=== PATIENT | female | born 1960 | race Caucasian/White ===

== ENCOUNTER 2016-09-30 16:42 | Observation (INO) ==
[2016-09-30 17:15] LABS: Basophils # 0.1 K/mcL (0.0-0.2); Basophils % 0.5 %; Eosinophils # 0.2 K/mcL (0.0-0.6); Eosinophils % 2.1 %; Hematocrit 41.8 % (35.3-44.9); Hemoglobin 12.9 g/dL (11.5-15.4); Immature Granulocytes % 0.3 % (0-4); Lymphocytes # 2.8 K/mcL (0.6-4.6); Lymphocytes % 27.2 %; Mean Corpuscular HGB Conc 30.9 g/dL (31.6-35.5); Mean Corpuscular Hemoglobin 24.9 pg (28.0-33.3); Mean Corpuscular Volume 80.7 fL (83.0-100.0); Mean Platelet Volume 11.5 fL (9.4-12.4); Monocytes # 0.6 K/mcL (0.0-1.3); Monocytes % 5.7 %; Neutrophils # 6.6 K/mcL (1.6-8.9); Platelet Count 295 K/mcL (140-400); Red Blood Count 5.18 M/mcL (3.82-4.97); Red Cell Distribution Width 16.9 % (11.5-14.5); Segmented Neutrophils % 64.2 %
[2016-09-30 17:20] LABS: INR 1.1; Prothrombin Time 12.4 Seconds (9.4-12.1)
[2016-09-30 17:23] LABS: Activated Partial Thrombo Time 36.2 Seconds (26.0-36.0)
[2016-09-30 17:28] LABS: BUN/Creatinine Ratio 18 (6-26); Blood Urea Nitrogen 16 mg/dL (7-20); Calcium 9.8 mg/dL (8.6-10.8); Carbon Dioxide 28 mEq/L (19-29); Chloride 103 mEq/L (98-109); Glucose 103 mg/dL (70-99); Osmolality,Calculated 291 (280-300); Potassium 3.9 mEq/L (3.5-4.5); Sodium 140 mEq/L (136-145); eGFR For African Americans > 60 (> 60); eGFR For Non-African Americans > 60 (> 60)
[2016-09-30] MEDS ORDERED: Nitroglycerin 0.4 MG TAB.SUBL SL PRN (17:48)
--- NOTE | 2016-09-30 17:53 | Emergency Department Note ---
Disposition Clinical Impression: Chest pain, rule out acute myocardial infarction Disposition: Admitted As Inpatient Condition: Good Chest Pain HPI - General Chief Complaint: ED Chest Pain Stated Complaint: Chest Pain Time Seen by Provider: 09/30/16 17:15 Source: patient Limitations: no limitations Vital Signs Reviewed: Yes Nursing Notes Reviewed: Yes - History of Present Illness HPI Narrative: 56-year-old female with a history of hypertension and high cholesterol presents to the emergency department with a chief complaint of chest pain. She states this started abruptly just prior to arrival on driving her car. She reports associated nausea without vomiting. She reports a "pressure in the chest" like someones sitting on her. She reports some mild shortness of breath. No history of cardiac disease but did have a stress test years ago. Pain does not radiate into her back or shoulder. Denies any abdominal pain. Severity scale (1-10): 10 - Related Data Allergies Allergy/AdvReac Type Severity Reaction Status Date / Time No Known Allergies Allergy Verified 09/30/16 16:51 All systems ED: reviewed and negative except as stated. Constitutional: Denies: fever Cardiovascular: Reports: chest pain. Denies: syncope Respiratory: Reports: dyspnea. Denies: cough Gastrointestinal: Reports: nausea. Denies: abdominal pain, vomiting Musculoskeletal: Denies: back pain Neurological: Denies: headache, weakness, numbness Chest Pain PMH - Past Medical History Medical history: Reports: hyperlipidemia, hypertension Psychiatric history: Reports: anxiety, depression - Social History Smoking Status: Never smoker Alcohol use: Reports: rarely Drug use: Reports: none Physical Exam General: Anxious but alert and oriented 3 Cardiovascular: Regular rate and rhythm. S1, S2. No murmurs, rubs or gallops. Respiratory: Breath sounds clear bilaterally. No wheezing, rales or rhonchi. No resp distress Abdomen: Soft, nontender. Eyes: Conjunctiva clear, tearful HENT: No oral mucosal lesions. Moist mucous membranes Neuro: Alert and oriented 3, sitting at bedside, stands and ambulates independently Musculoskeletal: No joint tenderness or swelling. No calf tenderness or signs of DVT Skin: No lesions. No diaphoresis. Normal turgor. Normal color Psych: anxious and tearful - General Limitations: no limitations General appearance: alert Course Course Narrative: Presents to the emergency department with a chief complaint of abrupt onset chest pressure associated with nausea. Initial EKG showed some mild ST depression in the lateral precordial leads. We have no old EKG available for comparison. Patient's story sounds very concerning for ACS. Her first troponin was 0 however, it is possible this was too early in the course to become elevated. She was given nitroglycerin which significantly improved her symptoms and blood pressure. Plan to admit for ACS rule out. Vital Signs Temperature 98.6 F 09/30/16 16:45 Pulse Rate 120 09/30/16 16:45 Respiratory Rate 28 09/30/16 16:45 Blood Pressure 202/87 09/30/16 16:45 O2 Sat by Pulse Oximetry 100 09/30/16 16:45 Temperature 98.6 F 09/30/16 16:45 Pulse Rate 84 09/30/16 19:21 Respiratory Rate 16 09/30/16 19:55 Blood Pressure 142/74 09/30/16 19:55 O2 Sat by Pulse Oximetry 98 09/30/16 19:21 Oxygen Delivery Oxygen Delivery Room Air Chest Pain - Lab Data Result diagrams: 09/30/16 17:07 09/30/16 17:07 Lab Results 09/30/16 09/30/16 09/30/16 Range/Units 17:07 17:07 17:07 WBC 10.3 (4.3-11.1) K/mcL RBC 5.18 H (3.82-4.97) M/mcL Hgb 12.9 (11.5-15.4) g/dL Hct 41.8 (35.3-44.9) % MCV 80.7 L (83.0-100.0) fL MCH 24.9 L (28.0-33.3) pg MCHC 30.9 L (31.6-35.5) g/dL RDW 16.9 H (11.5-14.5) % Plt Count 295 (140-400) K/mcL MPV 11.5 (9.4-12.4) fL Immature Gran % 0.3 (0-4) % Seg Neutrophils % 64.2 % Lymphocytes % 27.2 % Monocytes % 5.7 % Eosinophils % 2.1 % Basophils % 0.5 % Neutrophils # 6.6 (1.6-8.9) K/mcL Lymphocytes # 2.8 (0.6-4.6) K/mcL Monocytes # 0.6 (0.0-1.3) K/mcL Eosinophils # 0.2 (0.0-0.6) K/mcL Basophils # 0.1 (0.0-0.2) K/mcL PT 12.4 H (9.4-12.1) Seconds INR 1.1 APTT 36.2 H (26.0-36.0) Seconds Sodium (136-145) mEq/L Potassium (3.5-4.5) mEq/L Chloride (98-109) mEq/L Carbon Dioxide (19-29) mEq/L BUN (7-20) mg/dL Creatinine (0.57-1.11) mg/dL Est GFR ( Amer) (> 60) Est GFR (Non-Af Amer) (> 60) BUN/Creatinine Ratio (6-26) Glucose (70-99) mg/dL Calculated Osmolality (280-300) Calcium (8.6-10.8) mg/dL Troponin I (0-0.03) ng/mL B-Natriuretic Peptide 19 (0-100) pg/mL 09/30/16 09/30/16 Range/Units 17:07 17:07 WBC (4.3-11.1) K/mcL RBC (3.82-4.97) M/mcL Hgb (11.5-15.4) g/dL Hct (35.3-44.9) % MCV (83.0-100.0) fL MCH (28.0-33.3) pg MCHC (31.6-35.5) g/dL RDW (11.5-14.5) % Plt Count (140-400) K/mcL MPV (9.4-12.4) fL Immature Gran % (0-4) % Seg Neutrophils % % Lymphocytes % % Monocytes % % Eosinophils % % Basophils % % Neutrophils # (1.6-8.9) K/mcL Lymphocytes # (0.6-4.6) K/mcL Monocytes # (0.0-1.3) K/mcL Eosinophils # (0.0-0.6) K/mcL Basophils # (0.0-0.2) K/mcL PT (9.4-12.1) Seconds INR APTT (26.0-36.0) Seconds Sodium 140 (136-145) mEq/L Potassium 3.9 (3.5-4.5) mEq/L Chloride 103 (98-109) mEq/L Carbon Dioxide 28 (19-29) mEq/L BUN 16 (7-20) mg/dL Creatinine 0.87 (0.57-1.11) mg/dL Est GFR ( Amer) > 60 (> 60) Est GFR (Non-Af Amer) > 60 (> 60) BUN/Creatinine Ratio 18 (6-26) Glucose 103 H (70-99) mg/dL Calculated Osmolality 291 (280-300) Calcium 9.8 (8.6-10.8) mg/dL Troponin I 0.00 (0-0.03) ng/mL B-Natriuretic Peptide (0-100) pg/mL - EKG Data EKG results narrative: EKG shows a sinus rhythm with a rate of 96 bpm. OK, QRS, QT interval within normal limits. There is one beat of ectopy. She has less than 1 mm of depression in lead V5 and 6 as well as lead 3. There is no ST elevation. Poor R-wave progression. Left axis deviation. AVL is larger than 12 mm consistent with LVH. No EKG is available for comparison Attestation Statement - Attestation Attestation: I examined this patient and my medical decision-making was reviewed with the CHARGE RN/PA/Advanced Practice Nurse/Resident Physician. I agree with the documented findings, disposition and treatment plan as described except to the extent set forth below. 56-year-old female presents the ED because of chest pain. She has sudden onset of chest discomfort just prior to arrival to the ED. Complains of a pressure sensation associated with nausea and dyspnea. Complains of generalized weakness. Denies diaphoresis. No radiation of the pain outside of her chest. No recent illnesses. No recent complaints of exertional intolerance. No abdominal pain or diarrhea. No fever or cough. Patient appears uncomfortable. Hypertensive and tachycardic. Offerings is clear neck is supple trachea midline. Chest is clear to auscultation bilaterally. Chest wall nontender Cardiac exam regular without ectopy. Abdomen soft nondistended nontender. Extremities warm and dry. EKG with ST depression in the lateral leads with no EKG for comparison. Initial ED workup is unremarkable for any acute abnormality. First troponin was 0.00. She received several which was found with resolution of her chest pain. She will be admitted for further workup and observation.
[2016-09-30] MEDS ORDERED: Ondansetron 4 MG/2 ML VIAL IVP ONE (18:22)
[2016-09-30] MEDS ORDERED: Aspirin 81 MG TAB.CHEW PO ONE (19:17)
[2016-09-30] MEDS ORDERED: Naloxone 0.4 MG/ML INJ IVP PRN (23:19)
[2016-09-30] MEDS ORDERED: Ondansetron 4 MG/2 ML VIAL IVP PRN (23:19)
[2016-09-30] MEDS ORDERED: Acetaminophen 325 MG TABLET PO PRN (23:19)
[2016-09-30] MEDS ORDERED: *HR* FentaNYL (PF) 100 MCG/2 ML VIAL IVP PRN (23:19)
[2016-09-30] MEDS ORDERED: Gabapentin 300 MG CAPSULE PO SCH (23:30)
[2016-09-30] MEDS ORDERED: *HR* Heparin 5,000 UNIT/ML VIAL SQ SCH (23:30)
[2016-09-30] MEDS ORDERED: FLUoxetine 20 MG CAPSULE PO SCH (23:30)
--- NOTE | 2016-09-30 23:32 | Internal Med History&Physical ---
Date of Encounter: 09/30/16 Time of Encounter: 23:05 Assessment and Plan (1) Chest pain Current visit: Yes Status: Acute 1. Based upon history, exam, and EKG findings, I recommend ischemic work-up -- preferably LHC. 2. Will cycle troponins, EKG's, and order ECHO. 3. Consult cardiology as I suspect she needs LHC; however, I defer to cardiology. 4. Will order Fentanyl low dose on a PRN basis for chest pain and hold off Morphine per her request. Pt very reluctant to take any new medication. Qualifiers: Chest pain type: chest pain due to myocardial ischemia Ischemic chest pain type: stable angina pectoris Qualified Code(s): I20.8 - Other forms of angina pectoris (2) Hypertension Current visit: Yes Status: Chronic 1. Resume home meds as appropriate. 2. Monitor BP and adjust as needed. Qualifiers: Hypertension type: essential hypertension Qualified Code(s): I10 - Essential (primary) hypertension (3) Anxiety Current visit: Yes Status: Chronic 1. Continue home meds as scheduled. (4) DVT prophylaxis Current visit: Yes Status: Acute 1. Heparin SQ. Internal Medicine - H&P: HPI Chief complaint: chest pain Admitted From: Emergency Dept Plans for Post Hospital Care: Home History of present illness: Ms. Wiseman is a 56 year old female who [facility] of [facility] pain. She was driving home from [place] to [facility] where she lives. During her drive home, she noticed some substernal chest pain, pressure , diaphoresis, and nausea. She also had pain radiating to her mouth and jaw. This prompted her to stop driving and stop by the nearest ER, which was here at [place]. When she was brought to the ER, she was assessed and given nitroglycerin with complete relief of her chest pain. Initial workup was negative, but she was admitted to the hospitalist service for further workup and care. Upon my assessment of the patient, she is now chest pain-free and feels well. She wants to go home. I reviewed her history and her EKG, and I recommend she stay overnight and proceed with workup. She has some ischemic changes on her EKG and her history is rather concerning. Frankly, I recommend she undergo heart catheterization given the EKG findings, history, and relief of chest pain by nitroglycerin. I was able to convince patient to stay overnight and to discuss with cardiology in the morning. She did have a heart catheterization about 10 years ago which was negative. She also had a stress test several years ago that was negative. However, that was about 5 years ago. She is very sensitive to medications and is afraid of taking much medication. In particular , she is afraid of narcotics and significant sedating effects. She wants to avoid narcotics unless absolutely necessary. Therefore, she requests if we need to give narcotics for chest pain that we only administer low-dose fentanyl rather than morphine due to prior negative side effects. Cardiac risk factors include family history and hypertension. She does not smoke. She has a history of obesity but she has lost about 70 pounds intentionally over the last few years. Past Med Surg Social Fam HX - Past Medical History Attestation: Yes The following information was validated with the patient. Source: patient, obtained from family Medical history: hyperlipidemia, hypertension Psychiatric history: anxiety, depression - Past Surgical History Surgical History: other (abdominal surgeris for bowel obstruciton/rupture with complicaitons and subsequent surgeries) - Social History Smoking Status: Never smoker Smokeless Tobacco Status: No Alcohol use: rarely Drug use: none Current living situation: Home, With Family Activity Level: Independent ambulation Recent Out of Country Travel Within the Last 8 Weeks: No - Family History Mother Living Status: Hx Family Cardiac Disorders: No Father Living Status: Cause of : pancreatic cancer Hx Family Cardiac Disorders: Yes Internal Medicine - H&P: Meds Amlodipine Besylate 10 mg PO QPM 09/30/16 [History] FLUoxetine HCl [PROzac] 20 mg PO QPM 09/30/16 [History] Gabapentin [Neurontin] 600 mg PO QPM 09/30/16 [History] Ondansetron [Zofran] 8 mg PO DAILY PRN 09/30/16 [History] Allergies No Known Allergies Allergy (Verified 09/30/16 16:51) - Constitutional Constitutional: no chills, no fever(s) - EENT Eyes: no blurry vision, no change in vision Ears: no ear pain, no tinnitus Nose, mouth and throat: no nasal congestion, no sore throat - Cardiovascular Cardiovascular ROS IM: chest pain, diaphoresis, dyspnea, no edema, no syncope - Respiratory Respiratory: no cough, no hemoptysis, no chest congestion - Gastrointestinal Gastrointestinal: nausea, no diarrhea, no hematemesis, no hematochezia, no melena, no vomiting - Genitourinary Genitourinary: no dysuria - Musculoskeletal Musculoskeletal ROS IM: no arthralgias, no back pain - Integumentary Integumentary IM: no rash, no jaundice - Neurological Neurological ROS: no disequilibrium, no dizziness, no focal weakness, no frequent falls, no headache(s) - Psychiatric Psychiatric: no anxiety, no depression - Endocrine Endocrine IM: no cold intolerance, no heat intolerance, no polydipsia, no polyuria - Hematologic/Lymphatic Hematologic/Lymphatic: no easy bruising, no lymphadenopathy - Allergic/Immunologic Allergic/Immunologic: no wheezing, no GI upset with certain foods - Constitutional Vitals: Temp Pulse Resp BP Pulse Ox 98.3 F 74 16 128/77 98 09/30/16 21:26 09/30/16 21:26 09/30/16 21:26 09/30/16 21:26 09/30/16 21:26 General appearance: Present: cooperative, A&O X 3, pleasant, no acute distress, answers questions appropriately - Head Head exam: Present: atraumatic, normal inspection - Expanded Head Exam Head exam expanded: Absent: general tenderness - Eye Eye exam: Present: EOMI, normal appearance, PERRL. Absent: scleral icterus Pupils: Present: normal accommodation - ENT ENT exam: Present: mucous membranes moist, normal exam - Neck Neck exam general surgery: Present: full ROM, supple. Absent: lymphadenopathy, thyromegaly - Expanded Neck Exam Neck exam: Absent: carotid bruit - Respiratory Respiratory exam: Present: CTAB. Absent: rales, respiratory distress, rhonchi, wheezes - Cardiovascular Cardiovascular exam: Present: RRR, +S1, +S2, systolic murmur (grade 2). Absent : diastolic murmur, JVD - GI/Abdominal GI/Abdominal exam: Present: normal bowel sounds, soft. Absent: hepatomegaly, mass, splenomegaly, tenderness Additional comments: multiple surgical scars on abdominal wall with some incisional and abdominal wall hernias - Extremities Exam Extremities exam: Present: full ROM, normal capillary refill, warm. Absent: calf tenderness, tenderness - Back Exam Back exam: Present: normal inspection. Absent: CVA tenderness (L), CVA tenderness (R) - Neurological Exam Neurological exam: Present: alert, CN II-XII intact, oriented X3, no focal deficits - Psychiatric Psychiatric exam: Present: normal affect, normal mood - Skin Skin exam: Present: dry, warm. Absent: rash Internal Med - H&P Results - Labs CBC & Chem 7: 09/30/16 17:07 09/30/16 17:07 - EKG Data -: EKG Interpreted by Myself EKG shows normal: sinus rhythm - EKG Data EKG comments: 09/30/16 23:37 sinus rhythm with flipped T waves and ST-T depression laterally suggesting ischemia - Diagnostic Studies Chest x-ray Status: image reviewed by me (negative)
[2016-10-01] MEDS: 0.9 % Sodium Chloride w KCl 20 MEQ/1,000 ML MLS IVC SCH ×2 (00:03→14:46)
[2016-10-01] MEDS ORDERED: *HR* Heparin 5,000 UNIT/ML VIAL IVP ONE (01:45)
[2016-10-01] MEDS ORDERED: Heparin 25,000 UNIT/500 ML D5W 25,000 UNIT/500 ML MLS IVC SCH (01:45)
[2016-10-01] MEDS ORDERED: *HR* Heparin 5,000 UNIT/ML VIAL IVP PRN ×2 (01:45)
[2016-10-01 05:49] LABS: BUN/Creatinine Ratio 21 (6-26); Blood Urea Nitrogen 19 mg/dL (7-20); Calcium 9.2 mg/dL (8.6-10.8); Carbon Dioxide 29 mEq/L (19-29); Chloride 108 mEq/L (98-109); Chol/HDL Ratio 2.5 (0-4.9); Cholesterol 108 mg/dL (< 200); Glucose 100 mg/dL (70-99); HDL Cholesterol 44 mg/dL (40-59); LDL Cholesterol,Calculated 50 mg/dL (0-99); Magnesium 2.1 mg/dL (1.6-2.6); Osmolality,Calculated 296 (280-300); Sodium 142 mEq/L (136-145); Triglycerides 70 mg/dL (< 150); eGFR For African Americans > 60 (> 60); eGFR For Non-African Americans > 60 (> 60)
--- NOTE | 2016-10-01 08:51 | Cardiology Consult Note ---
Addendum entered and electronically signed by Mary Paul CNP 10/01/16 09: 21: Dynamic ECG changes noted. Original Note: Date of Encounter: 10/01/16 Time of Encounter: 08:00 Assessment and Plan (1) Chest pain Current Visit: Yes Status: Acute Troponin 0.00, 0.05, 0.02. Severely elevated BP upon admission. Presents with right-sided chest pressure with radiation to neck/jaw/tongue-- relieved with NTG tab. Risk factors for CAD: HTN, post-menopausal, and positive family hx (Father, [place] 60s). [place] [facility] [place] Pain free upon exam. Will start daily asa and add betablocker. Recommend ischemic evaluation; however patient is reluctant to stay for additional testing, she wants to go home. Will further discuss and review with Dr. Erin Lazo. Qualifiers: Chest pain type: chest pain due to myocardial ischemia Ischemic chest pain type: stable angina pectoris Qualified Code(s): I20.8 - Other forms of angina pectoris (2) Hypertension Current Visit: Yes Status: Chronic Uncontrolled upon presentation, SBP >200, now stable. Continue to monitor and adjust medications as needed. Qualifiers: Hypertension type: essential hypertension Qualified Code(s): I10 - Essential (primary) hypertension Discussion w patient/family: The assessment and plan as outlined above was discussed with the patient and/or family members who expressed understanding and agreement. All questions were answered. Thank you for involving us in the care of your patient. Please call with any questions. The patient will be discussed and reviewed with Dr. Erin Lazo, changes to be made accordingly. History of Present Illness Consult date: 10/01/16 Requesting physician: Myke Ramsay Consult reason: Chest pain Chief complaint: chest pain History of present illness: Ms. Wiseman is a 56 year old female with PMH significant for HTN and gastric bypass s/p multiple abdominal surgeries who presented to [facility] yesterday evening with right-sided chest pressure. She reports that she was driving home from [place] to [place] when the pressure worsened with radiation to up bilateral jaw and tongue. Associated symptoms include fatigue and palpitations. Upon arrival to ED initial troponin was negative; BP was severely elevated upon admission. She was given NTG tab which resolved the pain. She reports that she has had similar symptoms for the past 3 months but have never been this severe. Past Med Surg Social Fam HX - Past Medical History Attestation: Yes The following information was validated with the patient. Source: patient, old records reviewed Medical history: GERD, hypertension Psychiatric history: anxiety, depression - Past Surgical History Surgical History: other (abdominal surgeris for bowel obstruciton/rupture with complicaitons and subsequent surgeries), bariatric surgery - Social History Smoking Status: Never smoker Smokeless Tobacco Status: No Alcohol use: rarely Drug use: none - Family History Mother Living Status: Hx Family Cardiac Disorders: No Father Living Status: Cause of : pancreatic cancer Hx Family Cardiac Disorders: Yes Medications and Allergies Amlodipine Besylate 10 mg PO QPM 09/30/16 [History] FLUoxetine HCl [PROzac] 20 mg PO QPM 09/30/16 [History] Gabapentin [Neurontin] 600 mg PO QPM 09/30/16 [History] Ondansetron [Zofran] 8 mg PO DAILY PRN 09/30/16 [History] Allergies No Known Allergies Allergy (Verified 09/30/16 16:51) All Systems Review: A 10-system review of systems was performed and is negative for pertinent findings except as documented above in the HPI. - Cardiovascular Cardiovascular: as per HPI Physical Examination Vital Signs, Last 4 Hours Temp Pulse Resp BP Pulse Ox 10/01/16 07:01 97.8 F 67 20 118/74 97 General: Conversant, No Apparent Distress HEENT: Atraumatic, Normocephaly, Mucus Membranes Moist Cardiac: Reg Rate and Rhythm, Normal S1 and S2 Lungs: Normal Breath Sounds Neuro: Alert and responsive Abdomen: Soft, Other (multiple scars. ) Skin: No rashes noted on visualized skin Musculoskeletal: No Chest Wall Tenderness Extremities: No Edema, Normal Pulses Results 09/30/16 17:07 10/01/16 05:25 Lab Results 09/30/16 10/01/16 10/01/16 23:55 05:25 05:25 Sodium 142 Potassium 4.0 Chloride 108 Carbon Dioxide 29 BUN 19 Creatinine 0.92 Glucose 100 H Calcium 9.2 Magnesium 2.1 Troponin I 0.05 H* 0.02 Active Medications Acetaminophen (Tylenol) 650 mg PO Q6HR PRN PRN Reason: Mild Pain (1-3) Stop: 04/01/17 23:20 Last Admin: 10/01/16 00:03 Dose: 650 mg Amlodipine Besylate (Norvasc) 10 mg PO QPM ANGELIKA Stop: 04/02/17 18:01 Fentanyl Citrate (Fentanyl (Pf)) 25 mcg IVP Q3H PRN PRN Reason: Chest Pain Stop: 04/01/17 23:31 Fluoxetine HCl (Prozac) 20 mg PO QPM ANGELIKA PRN Reason: Protocol Stop: 04/01/17 23:31 Last Admin: 10/01/16 00:03 Dose: 20 mg Gabapentin (Neurontin) 600 mg PO QPM ANGELIKA Stop: 04/01/17 23:31 Last Admin: 10/01/16 00:03 Dose: 600 mg Heparin Sodium (Porcine) (Heparin) 4,000 unit IVP Q6HR PRN PRN Reason: SEE COMMENTS Stop: 04/02/17 01:46 Heparin Sodium (Porcine) (Heparin) 2,000 unit IVP Q6H PRN PRN Reason: SEE COMMENTS Stop: 04/02/17 01:46 Potassium Chloride/Sodium Chloride (Kcl 20 Meq In 0.9% Sodium Chloride) 20 meq in 1,000 mls @ 75 mls/hr IVC .[id number] ANGELIKA Stop: 04/01/17 23:31 Last Admin: 10/01/16 00:03 Dose: Not Given Heparin Sodium/Dextrose (Heparin 25,000 Unit/500 Ml D5w) 25,000 unit in 500 mls @ 20.047 mls/hr IVC .Q24H ANGELIKA; 11.1 UNIT/KG/HR PRN Reason: Protocol Stop: 04/02/17 01:46 Last Admin: 10/01/16 02:14 Dose: Not Given Naloxone HCl (Narcan) 0.4 mg IVP Q2MIN PRN PRN Reason: Opioid Reversal Stop: 04/01/17 23:20 Nitroglycerin (Nitroglycerin) 0.4 mg SL Q5MIN PRN PRN Reason: Chest Pain Stop: 04/01/17 17:49 Last Admin: 09/30/16 18:27 Dose: 0.4 mg Ondansetron HCl (Zofran) 4 mg IVP Q8HR PRN PRN Reason: Nausea And Vomiting Stop: 04/01/17 23:20 - Imaging and Cardiology Other Results: 12 hour tele: avg HR=74 SR. Occasional PVC. - EKG Interpretation EKG results cardiology: personally reviewed Consult Discharge Plan - Plan Referrals: NO,PCP [Primary Care Provider] -
[2016-10-01] MEDS ORDERED: Aspirin Enteric Coated 81 MG Tablet PO SCH (09:15)
[2016-10-01] MEDS ORDERED: Heparin 1,000 UNITS/500 mL NS 500 ML ONE (10:49)
[2016-10-01] MEDS ORDERED: *HR* Heparin 10,000 UNIT/10 ML VIAL ONE (10:49)
[2016-10-01] MEDS ORDERED: 0.9 % Sodium Chloride 1,000 ML ONE ×2 (10:49→11:26)
[2016-10-01] MEDS ORDERED: Nitroglycerin 1,000 MCG/10 ML VIAL IV ONE (11:00)
--- NOTE | 2016-10-01 11:04 | Pre-Sedation Evaluation ---
Pre-sedation evaluation - Pre-sedation checklist Date of procedure: 10/01/16 Procedure: [facility] Recent Vitals: Last Vital Signs Temp 97.8 F 10/01/16 07:01 Pulse 67 10/01/16 07:01 Resp 20 10/01/16 07:01 BP 118/74 10/01/16 07:01 Pulse Ox 97 10/01/16 08:49 H&P (including ROS) documented in medical record: Yes Previous reaction to sedatives/anesthetics: No Dietary Status: NPO after Midnight Airway Assessment: Patient can open mouth completely, TMJ function normal, Micrognathia (under-bite, receding chin) absent, Neck with adequate range of motion Dentition: full dentition Possible difficult airway: No ASA Classification *see protocol: CLASS II-Mild systemic disease Plan of Care: Pt appropriate candidate for procedure/moderate/conscious sedation , Risks/benefits of procedure/sedation discussed w/ patient/family
[2016-10-01] MEDS ORDERED: *HR* FentaNYL (PF) 100 MCG/2 ML VIAL ONE (11:06)
[2016-10-01] MEDS ORDERED: *HR* Midazolam HCl 2 MG/2 ML VIAL ONE (11:06)
--- NOTE | 2016-10-01 11:44 | Internal Med Progress Note ---
Date of Encounter: 10/01/16 Time of Encounter: 11:42 - Assessment and plan (1) NSTEMI (non-ST elevated myocardial infarction) Current Visit: Yes Status: Acute Assessment and plan: contine hparin drip, follow cardiology input, reevaluate after cath. - Subjective Interval history: no chest pain will go for cath today. - Constitutional Vitals: Temp Pulse Resp BP Pulse Ox 97.8 F 67 20 118/74 97 10/01/16 07:01 10/01/16 07:01 10/01/16 07:01 10/01/16 07:01 10/01/16 08:49 General appearance: Present: cooperative, A&O X 3, pleasant, no acute distress, answers questions appropriately - Head Head exam: Present: atraumatic, normocephalic - Eye Eye exam: Present: PERRL, conjuntiva pink, sclera anicteric Pupils: Present: PERRL - Neck Neck exam general surgery: Present: supple, trachea midline. Absent: lymphadenopathy - Respiratory Respiratory exam: Present: CTAB. Absent: accessory muscle use, rales, rhonchi, wheezes - Cardiovascular Cardiovascular exam: Present: RRR, +S1, +S2. Absent: diastolic murmur, gallop, rubs, systolic murmur - GI/Abdominal GI/Abdominal exam: Present: normal bowel sounds, soft, no peritoneal signs. Absent: distended, tenderness - Extremities Exam Extremities exam: Present: warm, radial pulses palpable and symetrical. Absent : calf tenderness, cyanotic, pedal edema - Neurological Exam Neurological exam: Present: CN II-XII intact, oriented X3, no focal deficits. Absent: pronater drift, facial droop, speech deficit - Skin Skin exam: Present: dry, intact Internal Medicine: Result - Labs CBC & Chem 7: 09/30/16 17:07 10/01/16 05:25 Labs: BMP 10/01/16 05:25 Sodium 142 Potassium 4.0 Chloride 108 Carbon Dioxide 29 BUN 19 Creatinine 0.92 Glucose 100 H Calcium 9.2 Cardiac Enzymes 09/30/16 10/01/16 Range/Units 23:55 05:25 Troponin I 0.05 H* 0.02 (0-0.03) ng/mL - ABG Interpretation ABG results: PT/INR, D-dimer PT 12.4 Seconds (9.4-12.1) H 09/30/16 17:07 Consult Discharge Plan - Plan Referrals: NO,PCP [Primary Care Provider] -
--- NOTE | 2016-10-01 12:05 | Invasive Diagnostic Lab Proc ---
Name: Andreea Wiseman Date of Study: 10/01/2016 Date: 1960 Ht: 66.9in Medical Record#: [id number] Age: 56 Wt: 199.08lb Gender: Female BSA: 2.02 Order #: [id number] BMI: 31.25 Physicians Procedure Physician: Erin Lazo MD, FACC Referring MD: Noah Pierson Referring MD: Staff Name Position [facility] RN Scrub 11:33 AM Rayne Vargas RN Batting Machine Operator 11:33 AM Emily Mendez RN Monitor 11:33 AM Indications Indication Non-Stemi Procedures Performed Procedure L HRT ARTERY/VENTRICLE ANGIO Pre-Procedure Checklist Informed consent is complete signed and on chart. H\\T\\P is on chart. ID band is on and ID verified with patient. Patient NPO for procedure The procedure was described for the patient and questions were answered. ECG is on chart. Plan of Care Patient will tolerate the procedure without complications. Adequate level of comfort will be maintained. Hemodynamics will remain stable Patient will recover from procedure without complications. Respiratory function will be maintained. Cardiac rhythm will remain stable. Patient temperature will be maintained. Patient and/or family have verbalized understanding of the procedure. Patient Education Chief Complaint/Reason for Test: Cardiac Cath Developmental Category: Adult (18-64 years) Developmentally Appropriate for Age: Yes Learning Barriers: None Education Needs: Procedure Education Method: Verbal Information Taught: Cardiac Cath Educational Evaluation: Able to repeat information Intravenous Access Time IV Size Location DC'd Fluid/Drip Rate Units RN 10:51 AM 20g 1 1/4" Patent On Arrival Rt Antecubital 0.9NaCl 25 ml/hr Allergies No Known Allergies Vital Signs Time BP (mmHg) HR (bpm) O2 Sat. RR (bpm) LOC 11:34 AM / % 5 = Fully awake and oriented or at pre-proc level 11:31 AM 143 / 76 72 99 % 6 11:36 AM 149 / 73 66 100 % 17 11:41 AM 125 / 57 62 100 % 14 11:46 AM 128 / 56 61 99 % 13 Procedural Medications Time Medication Dose Units Method Given By 11:34 AM Oxygen 2 L/min nasal cannula Rayne Vargas RN 11:34 AM Versed 1 mg Intravenous Rayne Vargas RN 11:34 AM Fentanyl 25 mcg Intravenous Rayne Vargas RN 11:36 AM Versed 1 mg Intravenous Rayne Vargas RN 11:36 AM Fentanyl 25 mcg Intravenous Rayne Vargas RN 11:42 AM Lidocaine 2% 20 ml Subcutaneous Erin Lazo MD, [facility] ASA Classification: CLASS II- Mild systemic disease (i.e. well-controlled diabetes, hypertension, asthma, cigarette smoking) Jesús Score Preprocedure Postprocedure Activity 2- Moves 4 extremities sustained head lift Activity 2- Moves 4 extremities sustained head lift Circulation 2- SBP +/= 20 points of pre-anesthetic level Circulation 2- SBP +/= 20 points of pre-anesthetic level Consciousness 2- Awake and alert oriented x 3 Consciousness 2- Awake and alert oriented x 3 O2 Saturation 2- Able to maintain O2 satruation of 92% on room air O2 Saturation 2- Able to maintain O2 satruation of 92% on room air Respiratory 2- Able to deep breathe and cough well Respiratory 2- Able to deep breathe and cough well Total Score 10 Total Score 10 Contrast Agent: Isovue Diagnostic Contrast: 49 ml Total Contrast: 49 ml Fluoro Dose: 121 mGy Procedure Log Time Note Enter By 11:09 AM CathStat 11:09 AM Case Start 11:30 AM Vitals capture started with the following parameters, Patient=Adult, Interval=5 min, Initial Clluhfom=659 mmHg, Deflation Rate=5 mmHg, Cuff placed on Left Arm 11:31 AM HR=72 bpm, LZIS=384/76 mmhg, SpO2=99.0 %, Resp=6 B/min, Comment=SR 11:32 AM Recorded ECG: HR=74 Condition=Condition 1 11:33 AM Pt arrived to farm laborer 2 at 11:33 [email or web address] 11:33 AM Jagdish Azar RN Position: Scrub Time in: 11:33 [email or web address] 11:33 AM Rayne Vargas RN Position: Batting Machine Operator Time in: 11:33 [email or web address] 11:33 AM Emily Mendez RN Position: Monitor Time in: 11:33 [email or web address] 11:33 AM Patient charges- Angio tray pack, Navilyst 3mm J, Pulse Oximetry and ACIST tubing and transducer [email or web address] 11:33 AM Case Delayed No [email or web address] 11:33 AM Hair removed from procedure site in procedure lab using clippers. Bilateral groin prepped with Chloraprep by Rayne Vargas RN, safety strap applied then patient was draped. Skin intact. [email or web address] 11:33 AM Physician arrived 11:33 [email or web address] 11:33 AM ASA Class CLASS II- Mild systemic disease (i.e. well-controlled diabetes, hypertension, asthma, cigarette smoking) [email or web address] 11:33 AM Quoc and javier completed [email or web address] 11:33 AM Sign in performed according to hospital policy. [email or web address] 11:33 AM Procedure start :33 [email or web address] 11:34 AM Time: 11:34 Oxygen on at 2 L/min per nasal cannula by Rayne Vargas RN [email or web address] 11:34 AM Time: 11:34 Versed 1 mg Intravenous Given by Rayne Vargas RN [email or web address] 11:34 AM Time: 11:34 Fentanyl 25 mcg Intravenous Given by Rayne Vargas RN [email or web address] 11:34 AM Time: 11:34 Patient comfortable and pain free: Yes [email or web address] :34 AM Time: 11:34LOC: 5 = Fully awake and oriented or at pre-proc level [email or web address] 11:34 AM Clinical Presentation: Non-STEMI [email or web address] 11:36 AM HR=66 bpm, HPZL=526/73 mmhg, YjJ1=468.0 %, Resp=17 B/min, Comment=SR 11:36 AM Time: 11:36 Versed 1 mg Intravenous Given by Rayne Vargas RN [email or web address] 11:37 AM Time: 11:36 Fentanyl 25 mcg Intravenous Given by Rayen Vargas RN [email or web address] 11:40 AM Time out performed according to hospital policy [email or web address] AM Pressure channel 1 zeroed. 11:41 AM HR=62 bpm, AZFK=042/57 mmhg, IxJ0=617.0 %, Resp=14 B/min, Comment=SR 11:42 AM Time: 11:42 20 ml Lidocaine 2% to right groin Subcutaneous Given by [facility], [facility] 11[facility] AM Access obtained by percutaneous puncture. 5Fr 10cm Terumo Broughton sheath placed in right Femoral artery. [id number] [email or web address] 11:42 AM 5Fr FL 4 [email or web address] 11[facility]42 AM 0.035 145cm Navilyst 3mmJ wire [id number] [email or web address] 11:43 AM Recorded Pressure: Ao, HR=59, Condition=Condition 1 (Aorta) Ao 121/75/95 11:43 AM LCA angiography performed in multiple views. [email or web address] 11:44 AM Catheter removed [email or web address] 11:44 AM 5Fr FR 4 catheter inserted over the wire DN [email or web address] 11:45 AM RCA angiography performed in multiple views. [email or web address] 11:46 AM HR=61 bpm, CYAA=756/56 mmhg, SpO2=99.0 %, Resp=13 B/min, Comment=SR 11:46 AM Recorded Pressure: Ao, HR=62, Condition=Condition 1 (Aorta) Ao 123/83/102 11:46 AM Coronary Dominance: right [email or web address] 11:47 AM Catheter removed [email or web address] 11:47 AM 5Fr Pigtail catheter inserted over the wire [facility] [email or web address] 11:47 AM Catheter selectively placed in left ventricle [email or web address] 11:47 AM Pressure channel 1 zero failed. 11:47 AM Pressure channel 1 zero failed. 11:47 AM Pressure channel 1 zeroed. 11:47 AM Recorded Pressure: LV, HR=63, Condition=Condition 1 (Left Ventricle) LV 103/2/3 11:47 AM Bolus angiogram of left Ventricle complete: 8 ml/sec for a total of 24 mls [email or web address] 11:48 AM Recorded Pressure: LV, Ao, HR=60, Condition=Condition 1 (Left Ventricle) LV 111/15/22, (Aorta) Ao 112/67/88 11:48 AM Catheter removed [email or web address] 11:49 AM Bolus angiogram of right Femoral complete: 4 ml/sec for a total of 7 mls [email or web address] 11:49 AM Procedure completed at 11:49 [email or web address] 11:49 AM Sign out completed: Radiation Dose 120.84 mGy Fluoro Time: 1.1 Isovue 370 - 200ml contrast 49 ml given by Erin Lazo MD, [facility]. Complications: NoneCardiac Rehab Consult needed: NoConfirmed administered medications: Yes [email or web address] 11:49 AM Isovue 370 - 200ml,1 Bottle(s) used. [email or web address] 11:51 AM Arterial sheath pulled, Mynx closure device used and was Successful [id number] S/N. [email or web address] 11:51 AM Post ECG NSR [email or web address] 11:52 AM Post Blood Pressure 123/62 [email or web address] 11:52 AM 11:52 Post Pulses Bilateral DP \\T\\ PT 1+ [email or web address] 11:52 AM Information taught Cardiac Cath and Mynx [email or web address] 11:52 AM Education needs Procedure, Plan of Care, and Responsibilities of Patient in Care [email or web address] 11:52 AM Learning barriers :None [email or web address] 11:52 AM Education Methods Verbal [email or web address] 11:52 AM Education evaluation Able to repeat information [email or web address] 11:53 AM Site status No bleeding/hematoma - Rt Groin as reported by Jagdish Azar RN at 11:53 [email or web address] 11:54 AM Opsite applied [email or web address] 11:58 AM Report given to RN Pt taken to 2A Room #36. 11:58 [email or web address] 11:58 AM Family placed in consult room. [email or web address] 11:58 AM Patient out of room: 11:58 [email or web address] Complications Complication None Hemodynamics Pressures Site Systolic/A Wave Diastolic/V Wave Mean AO 121 75 95 AO 123 83 102 LV 103 2 3 LV 111 15 22 AO 112 67 88 Post Procedure Information Blood Pressure: 123/62 mmHg Rhythm: NSR Post procedural instructions were given Site Checks Time Location Status Staff Sheath In? Note 11:53 AM Rt Groin No bleeding/hematoma Jagdish Azar RN Pulses Time Site Pre-Procedure Post-Procedure Note Bilateral DP \\T\\ PT 2+ 11:52:00 AM Bilateral DP \\T\\ PT 1+ Updated by Emily Mendez RN on 10/01/2016 12:00:45 PM electronically signed on 10/01/2016 12:01:09 PM with status of Final
--- NOTE | 2016-10-01 12:28 | Invasive Diagnostic Lab ---
Name: Andreea Wiseman Date of Study: 10/01/2016 Date: 1960 Ht: 170.0 cm /66.9 in Medical Record#: [id number] Age: 56 Wt: 90.3 kg / 199.08 lb Account/Order#: [id number] Gender: Female BSA: 2.02 Order #: [id number] Fluoro Dose: 121 mGy BMI: 31.25 Procedure Physician: Erin Lazo MD, FACC Referring MD: Noah Pierson Referring MD: Procedures Performed: LEFT HEART CATH Indications: Non-Stemi Impressions: The left ventricle is normal and has normal contractility EF 60% Coronary arteries are angiographically normal. Recommendations: Optimal medical therapy of patient's disease. Aggressive risk factor modification. History/Risk Factors: GERD Hypertension Procedure Access obtained in the right Femoral artery by percutaneous puncture Complications: None Contrast: Isovue 49ml Hemodynamics: Pressures Site Systolic/ A Wave Diastolic/ V Wave End Diastolic/ Mean HR AO 121 75 95 59 AO 123 83 102 62 LV 103 2 3 63 LV 111 15 22 59 AO 112 67 88 61 LV Ventriculography Ejection Method: LV Gram Ejection Fraction: 60% Wall Motion: CARO Anterobasal Normal Anterolateral Normal Apical: Normal Inferoapical Normal Inferobasal Normal Coronary Dominance: right Lesion Findings/Interventions * Left Main Coronary Artery The LMCA is angiographically free of disease. * Left Anterior Descending The LAD is angiographically free of disease. The 1st Diagonal is angiographically free of disease. * Circumflex The Circumflex is angiographically free of disease. The 1st Marginal is angiographically free of disease. * Right Coronary Artery The RCA is angiographically free of disease. The Right PDA is angiographically free of disease. Updated by Emily Mendez RN on 10/01/2016 12:01:15 PM Erin Lazo MD, FACC electronically signed on 10/01/2016 12:24:04 PM with status of Final
--- NOTE | 2016-10-01 14:37 | Event Note ---
Date of Encounter: 10/01/16 Time of Encounter: 14:00 - Cardiology Event Note LHC: non-obstructive CAD. ECG changes/chest discomfort/mild troponin likely secondary to stress and elevated BP. Continue medical management. Will arrange for outpatient follow-up with [facility] in 3-4 weeks; office will contact with appt. date and time. No further inpatient testing from Cardiology standpoint, will sign-off. Patient can be discharged to home later today once LHC orders/groin precautions completed.
[2016-10-01 15:06] VITALS: BP 127/74
--- NOTE | 2016-10-01 15:24 | Discharge Summary ---
Date of Encounter: 10/01/16 Time of Encounter: 15:22 - Discharge Diagnosis (1) NSTEMI (non-ST elevated myocardial infarction) Priority: Secondary Status: Acute (2) Chest pain Priority: Primary Status: Acute Qualifiers: Chest pain type: chest pain due to myocardial ischemia Ischemic chest pain type: stable angina pectoris Qualified Code(s): I20.8 - Other forms of angina pectoris (3) Anxiety Priority: Secondary Status: Chronic (4) Hypertension Priority: Secondary Status: Chronic Qualifiers: Hypertension type: essential hypertension Qualified Code(s): I10 - Essential (primary) hypertension - Discharge Medications Prescriptions: Aspirin Enteric Coated [Aspirin EC] 81 mg PO DAILY #30 tablet. Home Medications: Amlodipine Besylate 10 mg PO QPM 09/30/16 [History] FLUoxetine HCl [Prozac] 20 mg PO QPM 09/30/16 [History] Gabapentin [Neurontin] 600 mg PO QPM 09/30/16 [History] Ondansetron [Zofran] 8 mg PO DAILY PRN 09/30/16 [History] Aspirin Enteric Coated [Aspirin EC] 81 mg PO DAILY #30 tablet. 10/01/16 [Rx] Allergies/Adverse Reactions: Allergies No Known Allergies Allergy (Verified 09/30/16 16:51) Procedures/tests Complete & Pending: Procedures Performed prior 72 hours Category Date Time Status CL Cardiac Catheterization [CL] Routine Line Crewman 10/01/16 10:11 Completed ECG 12 lead ECG [ECG] AM 0600 Y 10/01/16 06:00 Ordered EV echocardiogram Routine Y 09/30/16 23:19 Ordered Date of admission: 09/30/16 19:43 Primary care physician: PCP NO Consults: 09/30/16 23:22 Consult to Physician [CONS] Routine Consulting Provider: Mayo Lazo Reason for Consult: chest pain relieved by NTG; favor [facility]. Call Completed: No Discharging clinician: Ray Stewart Anticipated date of discharge: 10/01/16 - Patient Status Disposition: Home, Self-Care Condition: Good Functional capacity at discharge: independent ambulation Overall status at discharge: patient is back to baseline - Discharge Instructions Follow Up With: [facility] [place] [Provider Group] (Please call to make a follow up appointment in 3-4 weeks) NO,PCP [Primary Care Provider] - - Diet and Activity Activity: increase activity as tolerated Diet: advance to your usual diet Interval History: Ms. Wiseman is a 56 year old female [facility] of [facility] pain. She was driving home from [place] to [facility] where she lives. During her drive home, she noticed some substernal chest pain, pressure , diaphoresis, and nausea. She also had pain radiating to her mouth and jaw. This prompted her to stop driving and stop by the nearest ER, which was here at [place]. When she was brought to the ER, she was assessed and given nitroglycerin with complete relief of her chest pain. Initial workup was negative, but she was admitted to the hospitalist service for further workup and care. Upon my assessment of the patient, she is now chest pain-free and feels well. She wants to go home. I reviewed her history and her EKG, and I recommend she stay overnight and proceed with workup. She has some ischemic changes on her EKG and her history is rather concerning. Frankly, I recommend she undergo heart catheterization given the EKG findings, history, and relief of chest pain by nitroglycerin. I was able to convince patient to stay overnight and to discuss with cardiology in the morning. She did have a heart catheterization about 10 years ago which was negative. She also had a stress test several years ago that was negative. However, that was about 5 years ago. She is very sensitive to medications and is afraid of taking much medication. In particular , she is afraid of narcotics and significant sedating effects. She wants to avoid narcotics unless absolutely necessary. Therefore, she requests if we need to give narcotics for chest pain that we only administer low-dose fentanyl rather than morphine due to prior negative side effects. Cardiac risk factors include family history and hypertension. She does not smoke. She has a history of obesity but she has lost about 70 pounds intentionally over the last few years. Hospital course: Ms. Wiseman is a 56 year old female, admitted due to chest pain, currently chest pain LHC: non-obstructive CAD. ECG changes/chest discomfort/mild troponin likely secondary to stress and elevated BP. Will arrange for outpatient follow-up with [facility] in 3-4 weeks; f/u with pcp. No further inpatient testing from Cardiology standpoint. Patient will be discharged home later today. - Time Spent with Patient Total time spent providing and/or coordinating discharge services: - Constitutional Vitals: Temp Pulse Resp BP Pulse Ox 98.0 F 70 15 127/74 95 10/01/16 15:00 10/01/16 15:00 10/01/16 15:00 10/01/16 15:00 10/01/16 15:00 General appearance: Present: cooperative, A&O X 3, pleasant, no acute distress, answers questions appropriately - Head Head exam: Present: atraumatic, normocephalic - Eye Eye exam: Present: PERRL, conjuntiva pink, sclera anicteric Pupils: Present: PERRL - Neck Neck exam general surgery: Present: supple, trachea midline. Absent: lymphadenopathy - Respiratory Respiratory exam: Present: CTAB. Absent: accessory muscle use, rales, rhonchi, wheezes - Cardiovascular Cardiovascular exam: Present: RRR, +S1, +S2. Absent: diastolic murmur, gallop, rubs, systolic murmur - GI/Abdominal GI/Abdominal exam: Present: normal bowel sounds, soft, no peritoneal signs. Absent: distended, tenderness - Extremities Exam Extremities exam: Present: warm, radial pulses palpable and symetrical. Absent : calf tenderness, cyanotic, pedal edema - Neurological Exam Neurological exam: Present: CN II-XII intact, oriented X3, no focal deficits. Absent: pronater drift, facial droop, speech deficit - Skin Skin exam: Present: dry, intact
[2016-10-01] MEDS ORDERED: amLODIPine 5 MG TABLET PO SCH (18:00)
--- NOTE | 2016-10-02 12:30 | Electrocardiograph Report ---
[place] [id number] Test Date: 2016-09-30 Pat Name: Andreea Wiseman Department: 103 Room: 2A Gender: F [employer]: ANDRY : 1960 Requested By: Geoffrey Pat Order Number: [id number] Reading MD: Mayo Lazo Measurements Intervals [place] Rate: 96 P: 26 [place]: 164 QRS: -24 QRSD: 105 T: 36 QT: 346 QTc: 400 Interpretive Statements SINUS RHYTHM WITH OCCASIONAL VENTRICULAR PREMATURE COMPLEXES BORDERLINE LEFT AXIS DEVIATION LATERAL ST CHANGES Electronically Signed On 10-02-2016 12:28:52 EDT by Mayo Lazo
--- NOTE | 2016-10-02 12:40 | Electrocardiograph Report ---
[place] [id number] Test Date: 2016-10-01 Pat Name: Andreea Wiseman Department: 112 Room: 2A Gender: F Director Of Global Sales: [facility] : 1960 Requested By: Kun Hernandes Order Number: [id number] Reading MD: Mayo Lazo Measurements Intervals [place] Rate: 66 P: 31 MD: 178 QRS: -15 QRSD: 94 T: -7 QT: 417 QTc: 431 Interpretive Statements SINUS RHYTHM WITH OCCASIONAL VENTRICULAR PREMATURE COMPLEXES MODERATE VOLTAGE CRITERIA FOR LVH, CONSIDER NORMAL VARIANT Electronically Signed On 10-02-2016 12:39:07 EDT by Mayo Lazo
== END 2016-10-01 15:38 | disposition home or self-care (01) ==
LOC: EMEROO 16:42 → 2ANU 16:42
PROVIDERS: ADMIT Pediatrics; ATTEND Internal Medicine